=== PATIENT | male | born 1975 | race African-American/Black ===

== ENCOUNTER 2019-01-28 14:35 | Inpatient (IN) | payer OTHER ==
[2019-01-28 15:15] VITALS: BMI 31.0
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
--- NOTE | 2019-01-28 17:37 | PN ---
"Teaching Attending Note Name of Resident: Ave Rodrigues ATTENDING PHYSICIAN STATEMENT I saw and evaluated the patient. I reviewed the resident's note and discussed the case with the resident. I agree with the resident's findings and plan as documented. SUBJECTIVE: 43 y.o. male pt here requesting detox from etoh use , reports 1 pint/day , relapsed after d/c from rehab October 2018 , reports he starts drinking alcohol when returning home from work in the afternoon , has been drinking alcohol continuously since yesterday , 1/2 gallon vodka, current VANNESSA 0.266 . PMHx of HTN, Asthma, Sarcoidosis (diagnosed 2001), gout, Pneumothorax-about 2013 , chest tube 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 joellen hands deformities ( hyper-extension PIP ) This report was requested by: Amanda Marcelo | Reference #: [id number] Others' Prescriptions Patient Name: Annie Guzman Date: 1975 Address: [address] [place] [address] [address] [place] [address] Sex: Male Rx Written Rx Dispensed Drug Quantity Days Supply Prescriber Name 04/04/2018 04/04/2018 hydrocodone-homatropine syrup 60ml 6 Melania Sam MD 03/23/2018 03/23/2018 codeine-guaifen 10-100 mg/5 ml 100ml 5 Steven Chaudhari MD Vital Signs - 24 hr 01/28/19 01/28/19 14:55 16:26 Temperature 97.7 F 97.7 F Pulse Rate 102 H 102 H Respiratory 18 18 Rate Blood Pressure 149/77 149/77 ASSESSMENT AND PLAN: Alcohol intoxication - Librium detox"
[2019-01-28] MEDS ORDERED: MAGNESIUM HYDROX 2400MG/30ML ORAL SUSPENSION 30 ML CUP PO PRN (17:45)
[2019-01-28] MEDS ORDERED: BISMUTH SUBSALICYLATE 524 MG/30 ML UD PO PRN (17:45)
[2019-01-28] MEDS ORDERED: MAG HYDROX/AL HYDROX/SIMETH 30 ML UNIT-DOSE CUP PO PRN (17:45)
[2019-01-28] MEDS ORDERED: ACETAMINOPHEN 325 MG TABLET (FP) PO PRN ×2 (17:45)
[2019-01-28] MEDS ORDERED: chlordiazePOXIDE HCL 25 MG CAPSULE PO PRN (17:45)
[2019-01-28] MEDS ORDERED: hydrOXYzine PAMOATE 25 MG CAPSULE (FP) PO PRN (17:45)
[2019-01-28] MEDS ORDERED: MAGNESIUM CITRATE 300 ML BOTTLE PO PRN (17:45)
[2019-01-28] MEDS ORDERED: METHOCARBAMOL 500 MG TABLET PO PRN (17:45)
[2019-01-28] MEDS: amLODIPine BESYLATE 10 MG TABLET (FP) PO SCH (19:20)
[2019-01-28] MEDS: predniSONE 10 MG TABLET (UD) PO SCH (19:20)
[2019-01-28] MEDS: MONTELUKAST NA 10 MG TABLET PO SCH (22:12)
[2019-01-28] MEDS: THIAMINE HCL 100 MG TABLET (FP) PO SCH (22:12)
[2019-01-28] MEDS: chlordiazePOXIDE HCL 25 MG CAPSULE PO SCH (22:12)
[2019-01-28] MEDS: MELATONIN 5 MG TABLETS PO PRN (22:14)
[2019-01-29] MEDS: chlordiazePOXIDE HCL 25 MG CAPSULE PO SCH ×4 (06:07→22:52)
[2019-01-29 09:44] LABS: HEMATOCRIT 46.8 % (35.4-49); HEMOGLOBIN 16.2 GM/dL (11.7-16.9); MCH 29.4 pg (25.7-33.7); MCHC 34.5 g/dl (32.0-35.9); MEAN CELL VOLUME 85.2 fl (80-96); MEAN PLT VOLUME 8.4 fl (7.5-11.1); PLATELET COUNT 275 K/MM3 (134-434); RDW 18.6 % (11.9-15.9); WHITE BLOOD COUNT 4.4 K/mm3 (4.0-10.0)
[2019-01-29] MEDS: predniSONE 10 MG TABLET (UD) PO SCH (10:15)
[2019-01-29] MEDS: amLODIPine BESYLATE 10 MG TABLET (FP) PO SCH (10:15)
[2019-01-29] MEDS: FUROSEMIDE 20 MG TABLET (FP) PO SCH (10:15)
[2019-01-29] MEDS: ALLOPURINOL 300 MG TABLET (FP) PO SCH (10:15)
[2019-01-29] MEDS: PRENATAL VITAMINS W/ FOLIC ACID TABLET (FP) PO SCH (10:15)
[2019-01-29 10:33] LABS: ALBUMIN 3.9 g/dl (3.4-5.0); BLOOD UREA NITROGEN 15.8 mg/dL (7-18); CALCIUM 8.8 mg/dL (8.5-10.1); CREATININE 0.9 mg/dL (0.55-1.3); POTASSIUM 4.3 mmol/L (3.5-5.1); TOT PROT 7.3 g/dl (6.4-8.2)
--- NOTE | 2019-01-29 11:48 | PN ---
S CIWA - CIWA Score Nausea/Vomitin-No Nausea/No Vomiting Muscle Tremors: 3 Anxiety: 3 Agitation: 3 Paroxysmal Sweats: 1-Minimal Palms Moist Orientation: 0-Oriented Tacttile Disturbances: 0-None Auditory Disturbances: 0-None Visual Disturbances: 0-None Headache: 0-None Present CIWA-Ar Total Score: 10 [facility] Progress Note (SOAP) Subjective: shakes sweats interrupted sleep body aches Objective: 01/29/19 11:46 Vital Signs Temperature 99.5 F 01/29/19 09:15 Pulse Rate 108 H 01/29/19 09:15 Respiratory Rate 18 01/29/19 09:15 Blood Pressure 156/96 01/29/19 09:15 O2 Sat by Pulse Oximetry (%) Laboratory Tests 01/29/19 01/29/19 01/29/19 07:10 07:10 07:10 WBC 4.4 RBC 5.50 Hgb 16.2 Hct 46.8 D MCV 85.2 MCH 29.4 MCHC 34.5 RDW 18.6 H Plt Count 275 D MPV 8.4 Sodium 132 L Potassium 4.3 Chloride 95 L Carbon Dioxide 25 Anion Gap 12 BUN 15.8 Creatinine 0.9 Est GFR (CKD-EPI)AfAm 122.52 Est GFR (CKD-EPI)NonAf 105.71 Random Glucose 137 H Calcium 8.8 Total Bilirubin 1.0 AST 159 H ALT 147 H Alkaline Phosphatase 119 H Total Protein 7.3 Albumin 3.9 RPR Titer Nonreactive labs noted aaox3 ambulating no acute distress Assessment: 01/29/19 11:48 withdrawals Plan: continue detox increase fluids
[2019-01-29] MEDS: BUDESONIDE/FORMETEROL FUMARATE 80/4.5 mcg INHALER IH PRN (13:18)
[2019-01-29] MEDS: IBUPROFEN 400 MG TABLET (FP) PO PRN (18:44)
[2019-01-29] MEDS: MONTELUKAST NA 10 MG TABLET PO SCH (22:52)
[2019-01-29] MEDS: THIAMINE HCL 100 MG TABLET (FP) PO SCH (22:52)
[2019-01-30] MEDS: chlordiazePOXIDE HCL 25 MG CAPSULE PO SCH ×4 (05:52→22:49)
[2019-01-30] MEDS: BUDESONIDE/FORMETEROL FUMARATE 80/4.5 mcg INHALER IH PRN ×2 (05:52→22:51)
[2019-01-30] MEDS: MENTHOL/PHENOL 1 EACH UD MM PRN (05:53)
[2019-01-30 10:03] LABS: SGOT/AST 123 U/L (15-37); SGPT/ALT 111 U/L (13-61)
--- NOTE | 2019-01-30 10:23 | PN ---
S CIWA - CIWA Score Nausea/Vomitin-No Nausea/No Vomiting Muscle Tremors: 2 Anxiety: 2 Agitation: 2 Paroxysmal Sweats: 1-Minimal Palms Moist Orientation: 0-Oriented Tacttile Disturbances: 0-None Auditory Disturbances: 0-None Visual Disturbances: 0-None Headache: 0-None Present CIWA-Ar Total Score: 7 [facility] Progress Note (SOAP) Subjective: sweats mild shakes interrupted sleep Objective: 01/30/19 10:22 Vital Signs Temperature 98.1 F 01/30/19 09:49 Pulse Rate 107 H 01/30/19 09:49 Respiratory Rate 18 01/30/19 09:49 Blood Pressure 142/81 01/30/19 09:49 O2 Sat by Pulse Oximetry (%) Laboratory Tests 01/29/19 01/29/19 01/29/19 07:10 07:10 07:10 WBC 4.4 RBC 5.50 Hgb 16.2 Hct 46.8 D MCV 85.2 MCH 29.4 MCHC 34.5 RDW 18.6 H Plt Count 275 D MPV 8.4 Sodium 132 L Potassium 4.3 Chloride 95 L Carbon Dioxide 25 Anion Gap 12 BUN 15.8 Creatinine 0.9 Est GFR (CKD-EPI)AfAm 122.52 Est GFR (CKD-EPI)NonAf 105.71 Random Glucose 137 H Calcium 8.8 Total Bilirubin 1.0 AST 159 H ALT 147 H Alkaline Phosphatase 119 H Total Protein 7.3 Albumin 3.9 RPR Titer Nonreactive 01/30/19 06:00 WBC RBC Hgb Hct MCV MCH MCHC RDW Plt Count MPV Sodium Potassium Chloride Carbon Dioxide Anion Gap BUN Creatinine Est GFR (CKD-EPI)AfAm Est GFR (CKD-EPI)NonAf Random Glucose Calcium Total Bilirubin AST 123 H ALT 111 H Alkaline Phosphatase Total Protein Albumin RPR Titer repeated labs repeated ast and alt improving aaox3 ambulating no acute distress Assessment: 01/30/19 10:23 withdrawal sx Plan: continue detox increase fluids
[2019-01-30] MEDS: predniSONE 10 MG TABLET (UD) PO SCH (10:34)
[2019-01-30] MEDS: FUROSEMIDE 20 MG TABLET (FP) PO SCH (10:34)
[2019-01-30] MEDS: PRENATAL VITAMINS W/ FOLIC ACID TABLET (FP) PO SCH (10:34)
[2019-01-30] MEDS: amLODIPine BESYLATE 10 MG TABLET (FP) PO SCH (10:35)
[2019-01-30] MEDS: ALLOPURINOL 300 MG TABLET (FP) PO SCH (10:36)
[2019-01-30] MEDS: IBUPROFEN 400 MG TABLET (FP) PO PRN ×2 (10:39→22:55)
[2019-01-30] MEDS: ALBUTEROL SO4 8 GM HFA INHALER IH PRN (14:46)
[2019-01-30] MEDS: MONTELUKAST NA 10 MG TABLET PO SCH (22:49)
[2019-01-30] MEDS: THIAMINE HCL 100 MG TABLET (FP) PO SCH (22:49)
[2019-01-30] MEDS: MELATONIN 5 MG TABLETS PO PRN (22:52)
[2019-01-31] MEDS ORDERED: chlordiazePOXIDE HCL 10 MG CAPSULE PO PRN
[2019-01-31] MEDS: chlordiazePOXIDE HCL 10 MG CAPSULE PO SCH ×3 (06:11→17:17)
[2019-01-31] MEDS: ALBUTEROL SO4 8 GM HFA INHALER IH PRN (06:12)
[2019-01-31] MEDS: IBUPROFEN 400 MG TABLET (FP) PO PRN (06:14)
[2019-01-31] MEDS: PRENATAL VITAMINS W/ FOLIC ACID TABLET (FP) PO SCH (10:23)
[2019-01-31] MEDS: ALLOPURINOL 300 MG TABLET (FP) PO SCH (10:24)
[2019-01-31] MEDS: amLODIPine BESYLATE 10 MG TABLET (FP) PO SCH (10:24)
[2019-01-31] MEDS: FUROSEMIDE 20 MG TABLET (FP) PO SCH (10:24)
[2019-01-31] MEDS: predniSONE 10 MG TABLET (UD) PO SCH (10:24)
[2019-01-31] MEDS: BUDESONIDE/FORMETEROL FUMARATE 80/4.5 mcg INHALER IH PRN ×2 (10:26→17:20)
--- NOTE | 2019-01-31 11:53 | PN ---
S CIWA - CIWA Score Nausea/Vomitin-No Nausea/No Vomiting Muscle Tremors: 3 Anxiety: 1-Mildly Anxious Agitation: 0-Normal Activity Paroxysmal Sweats: 1-Minimal Palms Moist Orientation: 0-Oriented Tacttile Disturbances: 0-None Auditory Disturbances: 0-None Visual Disturbances: 0-None Headache: 0-None Present CIWA-Ar Total Score: 5 [facility] Progress Note (SOAP) Subjective: the librium too strong mild shakes tired/groggy Objective: 01/31/19 11:48 Vital Signs Temperature 97.1 F L 01/31/19 10:00 Pulse Rate 95 H 01/31/19 10:00 Respiratory Rate 18 01/31/19 10:00 Blood Pressure 135/88 01/31/19 10:00 O2 Sat by Pulse Oximetry (%) Laboratory Tests 01/29/19 01/29/19 01/29/19 07:10 07:10 07:10 WBC 4.4 RBC 5.50 Hgb 16.2 Hct 46.8 D MCV 85.2 MCH 29.4 MCHC 34.5 RDW 18.6 H Plt Count 275 D MPV 8.4 Sodium 132 L Potassium 4.3 Chloride 95 L Carbon Dioxide 25 Anion Gap 12 BUN 15.8 Creatinine 0.9 Est GFR (CKD-EPI)AfAm 122.52 Est GFR (CKD-EPI)NonAf 105.71 Random Glucose 137 H Calcium 8.8 Total Bilirubin 1.0 AST 159 H ALT 147 H Alkaline Phosphatase 119 H Total Protein 7.3 Albumin 3.9 RPR Titer Nonreactive 01/30/19 06:00 WBC RBC Hgb Hct MCV MCH MCHC RDW Plt Count MPV Sodium Potassium Chloride Carbon Dioxide Anion Gap BUN Creatinine Est GFR (CKD-EPI)AfAm Est GFR (CKD-EPI)NonAf Random Glucose Calcium Total Bilirubin AST 123 H ALT 111 H Alkaline Phosphatase Total Protein Albumin RPR Titer labs noted liver enzymes improving aaox3 ambulating no acute distress Assessment: 01/31/19 11:49 mild withdrawals Plan: continue detox with modified dose of librium increase fluids
[2019-01-31] MEDS: THIAMINE HCL 100 MG TABLET (FP) PO SCH (22:16)
[2019-01-31] MEDS: MELATONIN 5 MG TABLETS PO PRN (22:16)
[2019-01-31] MEDS: MONTELUKAST NA 10 MG TABLET PO SCH (22:19)
[2019-01-31] MEDS: MENTHOL/PHENOL 1 EACH UD MM PRN (22:21)
[2019-02-01] MEDS ORDERED: chlordiazePOXIDE HCL 10 MG CAPSULE PO SCH ×2 (05:00→17:00)
[2019-02-01] MEDS: ALLOPURINOL 300 MG TABLET (FP) PO SCH (09:36)
[2019-02-01] MEDS: FUROSEMIDE 20 MG TABLET (FP) PO SCH (09:36)
[2019-02-01] MEDS: amLODIPine BESYLATE 10 MG TABLET (FP) PO SCH (09:36)
[2019-02-01] MEDS: BUDESONIDE/FORMETEROL FUMARATE 80/4.5 mcg INHALER IH PRN ×2 (09:36→22:12)
[2019-02-01] MEDS: PRENATAL VITAMINS W/ FOLIC ACID TABLET (FP) PO SCH (09:36)
[2019-02-01] MEDS: predniSONE 10 MG TABLET (UD) PO SCH (09:36)
--- NOTE | 2019-02-01 16:25 | PN ---
S CIWA - CIWA Score Nausea/Vomitin-No Nausea/No Vomiting Muscle Tremors: None Anxiety: 3 Agitation: 1-Slight > Activity Paroxysmal Sweats: No Perspiration Orientation: 0-Oriented Tacttile Disturbances: 1-Very Mild Itch/Numbness Auditory Disturbances: 0-None Visual Disturbances: 0-None Headache: 0-None Present CIWA-Ar Total Score: 5 [facility] Progress Note (SOAP) Subjective: Anxious (mild). Objective: PATIENT A & O X 3, OBSERVED AMBULATING ON DETOX UNIT UNASSISTED. IN NO ACUTE DISTRESS. 02/01/19 16:23 Vital Signs Temperature 99.1 F 02/01/19 14:48 Pulse Rate 100 H 02/01/19 14:48 Respiratory Rate 18 02/01/19 14:48 Blood Pressure 121/83 02/01/19 14:48 O2 Sat by Pulse Oximetry (%) Laboratory Tests 01/29/19 01/29/19 01/29/19 07:10 07:10 07:10 WBC 4.4 RBC 5.50 Hgb 16.2 Hct 46.8 D MCV 85.2 MCH 29.4 MCHC 34.5 RDW 18.6 H Plt Count 275 D MPV 8.4 Sodium 132 L Potassium 4.3 Chloride 95 L Carbon Dioxide 25 Anion Gap 12 BUN 15.8 Creatinine 0.9 Est GFR (CKD-EPI)AfAm 122.52 Est GFR (CKD-EPI)NonAf 105.71 Random Glucose 137 H Calcium 8.8 Total Bilirubin 1.0 AST 159 H ALT 147 H Alkaline Phosphatase 119 H Total Protein 7.3 Albumin 3.9 RPR Titer Nonreactive 01/30/19 06:00 WBC RBC Hgb Hct MCV MCH MCHC RDW Plt Count MPV Sodium Potassium Chloride Carbon Dioxide Anion Gap BUN Creatinine Est GFR (CKD-EPI)AfAm Est GFR (CKD-EPI)NonAf Random Glucose Calcium Total Bilirubin AST 123 H ALT 111 H Alkaline Phosphatase Total Protein Albumin RPR Titer LABS NOTED. Assessment: 02/01/19 16:24 WITHDRAWAL SYMPTOMS. ELEVATED LIVER ENZYMES. 02/01/19 16:24 Plan: CONTINUE DETOX. INCREASE DAILY ORAL WATER INTAKE. PATIENT SCHEDULED FOR D/C FROM DETOX UNIT TOMORROW.
[2019-02-01] MEDS: THIAMINE HCL 100 MG TABLET (FP) PO SCH (22:10)
[2019-02-01] MEDS: MONTELUKAST NA 10 MG TABLET PO SCH (22:10)
[2019-02-01] MEDS: IBUPROFEN 400 MG TABLET (FP) PO PRN (22:11)
[2019-02-02] MEDS ORDERED: chlordiazePOXIDE HCL 10 MG CAPSULE PO ONE (05:00)
[2019-02-02] MEDS: FUROSEMIDE 20 MG TABLET (FP) PO SCH (10:26)
[2019-02-02] MEDS: predniSONE 10 MG TABLET (UD) PO SCH (10:26)
[2019-02-02] MEDS: ALLOPURINOL 300 MG TABLET (FP) PO SCH (10:27)
[2019-02-02] MEDS: amLODIPine BESYLATE 10 MG TABLET (FP) PO SCH (10:27)
[2019-02-02] MEDS: PRENATAL VITAMINS W/ FOLIC ACID TABLET (FP) PO SCH (10:28)
--- NOTE | 2019-02-02 14:17 | DS ---
[facility] Detox Discharge Summary Admission Date: 01/28/19 Discharge Date: 02/02/19 - History Present History: Alcohol Dependence Additional Comments: Pt completed detox successfully and is in stable condition. Awaiting admission to [facility] inpatient Rehab here at [facility]. Pertinent Past History: Asthma HTN Sarcoidosis Alcohol dependence Alcohol related seizure disorder - Physical Exam Results Vital Signs: Vital Signs Temperature 97.9 F 02/02/19 10:54 Pulse Rate 88 02/02/19 10:54 Respiratory Rate 18 02/02/19 10:54 Blood Pressure 128/67 02/02/19 10:54 O2 Sat by Pulse Oximetry (%) Pertinent Admission Physical Exam Findings: Withdrawal sxs Laboratory Tests 01/29/19 01/29/19 01/29/19 07:10 07:10 07:10 WBC 4.4 RBC 5.50 Hgb 16.2 Hct 46.8 D MCV 85.2 MCH 29.4 MCHC 34.5 RDW 18.6 H Plt Count 275 D MPV 8.4 Sodium 132 L Potassium 4.3 Chloride 95 L Carbon Dioxide 25 Anion Gap 12 BUN 15.8 Creatinine 0.9 Est GFR (CKD-EPI)AfAm 122.52 Est GFR (CKD-EPI)NonAf 105.71 Random Glucose 137 H Calcium 8.8 Total Bilirubin 1.0 AST 159 H ALT 147 H Alkaline Phosphatase 119 H Total Protein 7.3 Albumin 3.9 RPR Titer Nonreactive 01/30/19 06:00 WBC RBC Hgb Hct MCV MCH MCHC RDW Plt Count MPV Sodium Potassium Chloride Carbon Dioxide Anion Gap BUN Creatinine Est GFR (CKD-EPI)AfAm Est GFR (CKD-EPI)NonAf Random Glucose Calcium Total Bilirubin AST 123 H ALT 111 H Alkaline Phosphatase Total Protein Albumin RPR Titer Labs reviewed: Na 132, AST/ALT elevated (trending downward), alk phos mildly elevated, glucose 137 (need to repeat CMP and send A1c in AM) - Treatment Hospital Course: Detox Protocol Followed, Detoxed Safely, Responded well, Discharged Condition Good, Rehab Referral Accepted - Medication Discharge Medications: Ambulatory Orders Albuterol Sulfate Inhaler - [Ventolin Hfa *Inhaler*] 2 5ml IH Q4H PRN 01/10/12 Amlodipine Besylate [Norvasc] 10 mg PO DAILY 01/10/12 Allopurinol 300 mg PO DAILY 01/28/19 Budesonide/Formeterol Fumarate [SYMBICORT 80/4.5mcg -] 1 inh PO BID 01/28/19 Diltiazem HCl [Diltiazem 24Hr ER] 120 mg PO DAILY 01/28/19 Furosemide [Lasix -] 20 mg PO DAILY 01/28/19 Montelukast Na [Singulair -] 10 mg PO HS 01/28/19 Prednisone 10 mg PO DAILY 01/28/19 - Diagnosis (1) Hypocalcemia Current Visit: Yes Status: Acute (2) Hyperglycemia Current Visit: Yes Status: Acute (3) Elevated LFTs Current Visit: Yes Status: Acute (4) Alcohol dependence with uncomplicated withdrawal Current Visit: Yes Status: Chronic (5) Asthma Current Visit: Yes Status: Chronic (6) Essential hypertension Current Visit: Yes Status: Chronic (7) Sarcoidosis Current Visit: Yes Status: Chronic - AMA Did Patient Leave Against Medical Advice: No (Accepted admission to [facility])
--- NOTE | 2019-02-02 15:25 | HP ---
[facility] Rehab Assess/Revision - Admission History Admitted to Rehab from: [facility] Date of Admission to Rehab: 02/02/19 - Vital signs Vital Signs: Vital Signs Period Temp Pulse Resp BP Sys/Rosario Pulse Ox Last 24 Hr 95.4 F-98.2 F 72-91 18-20 117-137/67-80 - Findings Detox History & Physical reviewed: Yes Concur with findings: Yes Inpatient Rehab Admission - Rehab Decision to Admit Inpatient rehab admission?: Yes - Initial Determination Are CD services needed?: No Free of communicable disease: Yes Not in need of hospitalization: Yes - Rehab Admission Criteria Previous failed treatment: Yes Poor recovery environment: Yes Comorbidities: Yes Lacks judgement: Yes Patient is meeting Inpatient Rehab admission criteria:: Yes
[2019-02-02] MEDS: MELATONIN 5 MG TABLETS PO PRN (21:29)
[2019-02-02] MEDS: MONTELUKAST NA 10 MG TABLET PO SCH (21:29)
[2019-02-02] MEDS: THIAMINE HCL 100 MG TABLET (FP) PO SCH (21:29)
[2019-02-02] MEDS: IBUPROFEN 400 MG TABLET (FP) PO PRN (21:44)
[2019-02-03] MEDS ORDERED: SUVOREXANT 10 MG TABLET PO PRN (08:54)
[2019-02-03] MEDS ORDERED: PT OWN MED DRAWER 7, Y5N ONE ×2 (09:13→22:04)
[2019-02-03] MEDS: BUDESONIDE/FORMETEROL FUMARATE 80/4.5 mcg INHALER IH PRN ×2 (09:55→22:05)
[2019-02-03] MEDS: ALLOPURINOL 300 MG TABLET (FP) PO SCH (09:56)
[2019-02-03] MEDS: amLODIPine BESYLATE 10 MG TABLET (FP) PO SCH (09:56)
[2019-02-03] MEDS: FUROSEMIDE 20 MG TABLET (FP) PO SCH (09:56)
[2019-02-03] MEDS: predniSONE 10 MG TABLET (UD) PO SCH (09:56)
[2019-02-03] MEDS: PRENATAL VITAMINS W/ FOLIC ACID TABLET (FP) PO SCH (09:56)
[2019-02-03] MEDS: COLLOIDAL OATMEAL 1 BAR EACH TP PRN (10:16)
[2019-02-03 12:22] LABS: ALBUMIN 3.8 g/dl (3.4-5.0); BILIRUBIN,TOTAL 0.7 mg/dL (0.2-1); BLOOD UREA NITROGEN 12.3 mg/dL (7-18); CALCIUM 9.2 mg/dL (8.5-10.1); CREATININE 0.9 mg/dL (0.55-1.3); POTASSIUM 3.8 mmol/L (3.5-5.1); TOT PROT 7.2 g/dl (6.4-8.2)
--- NOTE | 2019-02-03 14:22 | PN ---
[facility] Progress Note Note: Vital Signs Temperature 98 F 02/03/19 06:52 Pulse Rate 95 H 02/03/19 09:30 Respiratory Rate 18 02/03/19 09:30 Blood Pressure 125/74 02/03/19 09:30 O2 Sat by Pulse Oximetry (%) Laboratory Tests 01/29/19 01/29/19 01/29/19 07:10 07:10 07:10 WBC 4.4 RBC 5.50 Hgb 16.2 Hct 46.8 D MCV 85.2 MCH 29.4 MCHC 34.5 RDW 18.6 H Plt Count 275 D MPV 8.4 Sodium 132 L Potassium 4.3 Chloride 95 L Carbon Dioxide 25 Anion Gap 12 BUN 15.8 Creatinine 0.9 Est GFR (CKD-EPI)AfAm 122.52 Est GFR (CKD-EPI)NonAf 105.71 Random Glucose 137 H Hemoglobin A1c % Calcium 8.8 Total Bilirubin 1.0 AST 159 H ALT 147 H Alkaline Phosphatase 119 H Total Protein 7.3 Albumin 3.9 RPR Titer Nonreactive 01/30/19 02/03/19 02/03/19 06:00 08:00 08:00 WBC RBC Hgb Hct MCV MCH MCHC RDW Plt Count MPV Sodium 135 L Potassium 3.8 Chloride 99 Carbon Dioxide 29 Anion Gap 8 BUN 12.3 Creatinine 0.9 Est GFR (CKD-EPI)AfAm 122.52 Est GFR (CKD-EPI)NonAf 105.71 Random Glucose 201 H Hemoglobin A1c % 6.4 H Calcium 9.2 Total Bilirubin 0.7 AST 123 H 71 H ALT 111 H 135 H Alkaline Phosphatase 124 H Total Protein 7.2 Albumin 3.8 RPR Titer LABS REVIEWED. PATIENT HAS AIC 6.4. ORAL FLUIDS, NCS DIET ENCOURAGED. PATIENT ALSO ON PREDNISONE FOR SARCOIDOSIS. PATIENT STATES ALTHOUGH PRESCRIPTION WRITTEN FOR 10MG DAILY, PATIENT'S HOUSE WIRER WOULD TITRATE MEDICATION. PATIENT ENCOURAGED TO CONTACT SPECIALIST AND HAVE HIM FAX RECOMMENDATIONS OF TITRATION TO [facility].
[2019-02-03] MEDS: THIAMINE HCL 100 MG TABLET (FP) PO SCH (22:01)
[2019-02-03] MEDS: MONTELUKAST NA 10 MG TABLET PO SCH (22:01)
[2019-02-04] MEDS: BUDESONIDE/FORMETEROL FUMARATE 80/4.5 mcg INHALER IH PRN (09:55)
[2019-02-04] MEDS: FUROSEMIDE 20 MG TABLET (FP) PO SCH (09:55)
[2019-02-04] MEDS: amLODIPine BESYLATE 10 MG TABLET (FP) PO SCH (09:55)
[2019-02-04] MEDS: predniSONE 10 MG TABLET (UD) PO SCH (09:55)
[2019-02-04] MEDS: PRENATAL VITAMINS W/ FOLIC ACID TABLET (FP) PO SCH (09:55)
[2019-02-04] MEDS: IBUPROFEN 400 MG TABLET (FP) PO PRN ×2 (09:56→21:25)
[2019-02-04] MEDS ORDERED: SELENIUM SULFIDE 2.25% 180 ML SHAMPOO TP SCH (10:00)
[2019-02-04] MEDS: ALLOPURINOL 300 MG TABLET (FP) PO SCH (10:10)
[2019-02-04] MEDS ORDERED: PT OWN MED DRAWER 7, Y5N ONE ×2 (10:11→21:52)
[2019-02-04] MEDS: SELENIUM SULFIDE 2.5% LOTION 4 OZ. TP SCH (10:11)
--- NOTE | 2019-02-04 13:21 | PN ---
[facility] Progress Note (SOAP) Subjective: A1c is 6.4. Patient is on 10 mg prednisone daily for sarcoidosis Liver enzymes elevated. Patient has a medical hx of both. Objective: 02/04/19 13:19 Laboratory 01/29/19 01/29/19 01/29/19 07:10 07:10 07:10 WBC 4.4 K/mm3 K/mm3 (4.0-10.0) RBC 5.50 M/mm3 M/mm3 (4.00-5.60) Hgb 16.2 GM/dL GM/dL (11.7-16.9) Hct 46.8 % D % (35.4-49) MCV 85.2 fl fl (80-96) MCH 29.4 pg pg (25.7-33.7) MCHC 34.5 g/dl g/dl (32.0-35.9) RDW 18.6 % H % (11.9-15.9) Plt Count 275 K/MM3 D K/MM3 (134-434) MPV 8.4 fl fl (7.5-11.1) Sodium 132 mmol/L L mmol/L (136-145) Potassium 4.3 mmol/L mmol/L (3.5-5.1) Chloride 95 mmol/L L mmol/L (98-107) Carbon Dioxide 25 mmol/L mmol/L (21-32) Anion Gap 12 MMOL/L MMOL/L (8-16) BUN 15.8 mg/dL mg/dL (7-18) Creatinine 0.9 mg/dL mg/dL (0.55-1.3) Est GFR (CKD-EPI)AfAm 122.52 Est GFR (CKD-EPI)NonAf 105.71 Random Glucose 137 mg/dL H mg/dL (74-106) Hemoglobin A1c % Calcium 8.8 mg/dL mg/dL (8.5-10.1) Total Bilirubin 1.0 mg/dL mg/dL (0.2-1) AST 159 U/L H U/L (15-37) ALT 147 U/L H U/L (13-61) Alkaline Phosphatase 119 U/L H U/L (45-117) Total Protein 7.3 g/dl g/dl (6.4-8.2) Albumin 3.9 g/dl g/dl (3.4-5.0) RPR Titer Nonreactive (NONREACTIVE) 01/30/19 02/03/19 02/03/19 06:00 08:00 08:00 WBC RBC Hgb Hct MCV MCH MCHC RDW Plt Count MPV Sodium 135 mmol/L L mmol/L (136-145) Potassium 3.8 mmol/L mmol/L (3.5-5.1) Chloride 99 mmol/L mmol/L (98-107) Carbon Dioxide 29 mmol/L mmol/L (21-32) Anion Gap 8 MMOL/L MMOL/L (8-16) BUN 12.3 mg/dL mg/dL (7-18) Creatinine 0.9 mg/dL mg/dL (0.55-1.3) Est GFR (CKD-EPI)AfAm 122.52 Est GFR (CKD-EPI)NonAf 105.71 Random Glucose 201 mg/dL H mg/dL (74-106) Hemoglobin A1c % 6.4 % H % (4.2-6.3) Calcium 9.2 mg/dL mg/dL (8.5-10.1) Total Bilirubin 0.7 mg/dL mg/dL (0.2-1) AST 123 U/L H U/L 71 U/L H U/L (15-37) (15-37) ALT 111 U/L H U/L 135 U/L H U/L (13-61) (13-61) Alkaline Phosphatase 124 U/L H U/L (45-117) Total Protein 7.2 g/dl g/dl (6.4-8.2) Albumin 3.8 g/dl g/dl (3.4-5.0) RPR Titer Assessment: hyperglycemia Elevated LFTs 02/04/19 13:22 02/04/19 13:25 Plan: encourage NCS diet; BGM x 3 days.continue to monitor LFTs, decreased from 01/29 to 02/03.
[2019-02-04] MEDS ORDERED: COLCHICINE 0.6 MG CAP PO PRN ×2 (14:05→14:23)
--- NOTE | 2019-02-04 15:32 | PN ---
S Progress Note (SOAP) Subjective: patient on prednisone, 10 mg daily. Patient reports that he is only on prednisone when he has a flair-up of scaroidosis and then his PCP tapers it off. He also reports that his norvasc was discontinued when he started cardizem. He also says he takes colchicine when he has a flare-up of gout and that it is given along with his allopurinol and his cardizem. He now reports a slight tingling in his left great toe, which he says is a precursor to a gout flare-up. His A1c is 6.4, possibly related to ETOH use and prednisone. His PCP, Dr. Morales was called and verified everything that the patient reported. Objective: Vital Signs (72 hours) 02/01/19 02/01/19 02/01/19 17:26 18:46 21:21 Temperature 98.2 F 95.4 F L 98.2 F Pulse Rate 89 72 91 H Respiratory 18 18 18 Rate Blood Pressure 117/67 137/80 130/72 02/02/19 02/02/19 02/02/19 00:30 03:30 10:54 Temperature 97.9 F Pulse Rate 88 Respiratory 20 18 18 Rate Blood Pressure 128/67 02/03/19 02/03/19 02/03/19 00:30 03:30 06:52 Temperature 98 F Pulse Rate 78 Respiratory 20 20 18 Rate Blood Pressure 132/92 02/03/19 02/04/19 02/04/19 09:30 07:07 11:54 Temperature 97.8 F Pulse Rate 95 H 66 96 H Respiratory 18 18 18 Rate Blood Pressure 125/74 118/74 128/75 02/04/19 15:29 P/E General: no apparent distress, able to make needs known, follow instructions Skin: color consistent throughout trunk and extremities Lungs: clear Heart: s1 s2 extremities: bilateral feet warm, good turgor, no swelling of toes, tenderness on palpation Neuro: Cn 2-12 intact MSK: full weight bearing, full ROM. steady gait. Assessment: Prednisone taper needed r/o gout flare-up Medication review 02/04/19 15:32 Plan: Prednisone taper ordered. Uric acid level ordered colchicine ordered and PCP instruction included in order for pharmacy Norvasc discontinued patient advised to follow up with PCP about elevated A1c. Patient agreed.
[2019-02-04] MEDS: MELATONIN 5 MG TABLETS PO PRN (21:24)
[2019-02-04] MEDS: THIAMINE HCL 100 MG TABLET (FP) PO SCH (21:24)
[2019-02-04] MEDS: MONTELUKAST NA 10 MG TABLET PO SCH (21:24)
[2019-02-05] MEDS: IBUPROFEN 400 MG TABLET (FP) PO PRN ×2 (06:09→22:26)
[2019-02-05] MEDS ORDERED: PT OWN MED DRAWER 7, Y5N ONE ×2 (08:34→09:57)
[2019-02-05] MEDS: FUROSEMIDE 20 MG TABLET (FP) PO SCH (09:53)
[2019-02-05] MEDS: predniSONE 5 MG TABLET (UD) PO SCH (09:53)
[2019-02-05] MEDS: PRENATAL VITAMINS W/ FOLIC ACID TABLET (FP) PO SCH (09:54)
[2019-02-05] MEDS: SELENIUM SULFIDE 2.5% LOTION 4 OZ. TP SCH (09:55)
[2019-02-05] MEDS: ALLOPURINOL 300 MG TABLET (FP) PO SCH (09:55)
[2019-02-05] MEDS: THIAMINE HCL 100 MG TABLET (FP) PO SCH (21:49)
[2019-02-05] MEDS: MONTELUKAST NA 10 MG TABLET PO SCH (21:49)
[2019-02-05] MEDS: MELATONIN 5 MG TABLETS PO PRN (21:50)
[2019-02-05] MEDS: BUDESONIDE/FORMETEROL FUMARATE 80/4.5 mcg INHALER IH PRN (21:50)
[2019-02-06] MEDS ORDERED: PT OWN MED DRAWER 7, Y5N ONE ×2 (06:37→21:30)
[2019-02-06] MEDS: IBUPROFEN 400 MG TABLET (FP) PO PRN ×2 (06:38→21:31)
[2019-02-06] MEDS: FUROSEMIDE 20 MG TABLET (FP) PO SCH (09:52)
[2019-02-06] MEDS: PRENATAL VITAMINS W/ FOLIC ACID TABLET (FP) PO SCH (09:52)
[2019-02-06] MEDS: predniSONE 5 MG TABLET (UD) PO SCH (09:52)
[2019-02-06] MEDS: ALLOPURINOL 300 MG TABLET (FP) PO SCH (09:52)
[2019-02-06] MEDS: BUDESONIDE/FORMETEROL FUMARATE 80/4.5 mcg INHALER IH PRN (09:55)
[2019-02-06] MEDS: COLLOIDAL OATMEAL 1 BAR EACH TP PRN (16:33)
[2019-02-06] MEDS: MONTELUKAST NA 10 MG TABLET PO SCH (21:31)
[2019-02-06] MEDS: MELATONIN 5 MG TABLETS PO PRN (21:31)
[2019-02-06] MEDS: THIAMINE HCL 100 MG TABLET (FP) PO SCH (21:31)
[2019-02-07] MEDS: SELENIUM SULFIDE 2.5% LOTION 4 OZ. TP SCH ×2 (06:27→10:11)
--- NOTE | 2019-02-07 10:03 | PN ---
[facility] Progress Note Note: Patient c/o insomnia, will Belsomra 10mg po prn.
[2019-02-07] MEDS: PRENATAL VITAMINS W/ FOLIC ACID TABLET (FP) PO SCH (10:08)
[2019-02-07] MEDS: FUROSEMIDE 20 MG TABLET (FP) PO SCH (10:08)
[2019-02-07] MEDS: predniSONE 5 MG TABLET (UD) PO SCH (10:10)
[2019-02-07] MEDS: ALLOPURINOL 300 MG TABLET (FP) PO SCH (10:11)
[2019-02-07] MEDS: IBUPROFEN 400 MG TABLET (FP) PO PRN (10:12)
[2019-02-07] MEDS: BUDESONIDE/FORMETEROL FUMARATE 80/4.5 mcg INHALER IH PRN (10:20)
[2019-02-07] MEDS: MONTELUKAST NA 10 MG TABLET PO SCH (21:28)
[2019-02-07] MEDS: THIAMINE HCL 100 MG TABLET (FP) PO SCH (21:28)
[2019-02-07] MEDS: MELATONIN 5 MG TABLETS PO PRN (21:29)
[2019-02-07] MEDS: SUVOREXANT 10 MG TABLET PO PRN (21:29)
[2019-02-08] MEDS: FUROSEMIDE 20 MG TABLET (FP) PO SCH (09:43)
[2019-02-08] MEDS: BUDESONIDE/FORMETEROL FUMARATE 80/4.5 mcg INHALER IH PRN ×2 (09:43→21:21)
[2019-02-08] MEDS: ALLOPURINOL 300 MG TABLET (FP) PO SCH (09:43)
[2019-02-08] MEDS: PRENATAL VITAMINS W/ FOLIC ACID TABLET (FP) PO SCH (09:43)
[2019-02-08] MEDS: SELENIUM SULFIDE 2.5% LOTION 4 OZ. TP SCH (09:43)
[2019-02-08] MEDS: predniSONE 5 MG TABLET (UD) PO SCH (09:44)
[2019-02-08] MEDS: IBUPROFEN 400 MG TABLET (FP) PO PRN (09:45)
[2019-02-08] MEDS: THIAMINE HCL 100 MG TABLET (FP) PO SCH (21:21)
[2019-02-08] MEDS: MONTELUKAST NA 10 MG TABLET PO SCH (21:21)
[2019-02-08] MEDS: SUVOREXANT 10 MG TABLET PO PRN (21:21)
[2019-02-08] MEDS: MELATONIN 5 MG TABLETS PO PRN (21:22)
[2019-02-09] MEDS: predniSONE 5 MG TABLET (UD) PO SCH (09:59)
[2019-02-09] MEDS: ALLOPURINOL 300 MG TABLET (FP) PO SCH (09:59)
[2019-02-09] MEDS: PRENATAL VITAMINS W/ FOLIC ACID TABLET (FP) PO SCH (10:00)
[2019-02-09] MEDS: BUDESONIDE/FORMETEROL FUMARATE 80/4.5 mcg INHALER IH PRN ×2 (10:00→21:35)
[2019-02-09] MEDS: FUROSEMIDE 20 MG TABLET (FP) PO SCH (10:01)
[2019-02-09] MEDS: IBUPROFEN 400 MG TABLET (FP) PO PRN (10:01)
[2019-02-09] MEDS: SELENIUM SULFIDE 2.5% LOTION 4 OZ. TP SCH (10:01)
--- NOTE | 2019-02-09 12:30 | PN ---
[facility] Progress Note Note: Psychiatric nurse practitioner note: Belsoa 10mg renewed X3. Verbal consent given.
[2019-02-09] MEDS: MELATONIN 5 MG TABLETS PO PRN (21:36)
[2019-02-09] MEDS: MONTELUKAST NA 10 MG TABLET PO SCH (21:36)
[2019-02-09] MEDS: THIAMINE HCL 100 MG TABLET (FP) PO SCH (21:36)
[2019-02-09] MEDS: SUVOREXANT 10 MG TABLET PO PRN (21:38)
[2019-02-10] MEDS: ALBUTEROL SO4 8 GM HFA INHALER IH PRN (03:11)
[2019-02-10] MEDS: COLLOIDAL OATMEAL 1 BAR EACH TP PRN (06:26)
[2019-02-10] MEDS: PRENATAL VITAMINS W/ FOLIC ACID TABLET (FP) PO SCH (10:28)
[2019-02-10] MEDS: BUDESONIDE/FORMETEROL FUMARATE 80/4.5 mcg INHALER IH PRN (10:28)
[2019-02-10] MEDS: FUROSEMIDE 20 MG TABLET (FP) PO SCH (10:28)
[2019-02-10] MEDS: predniSONE 5 MG TABLET (UD) PO SCH (10:33)
[2019-02-10] MEDS: ALLOPURINOL 300 MG TABLET (FP) PO SCH (10:35)
[2019-02-10] MEDS: SELENIUM SULFIDE 2.5% LOTION 4 OZ. TP SCH (10:36)
[2019-02-10 11:58] LABS: ALBUMIN 3.7 g/dl (3.4-5.0); BILIRUBIN,TOTAL 0.3 mg/dL (0.2-1); BLOOD UREA NITROGEN 12.4 mg/dL (7-18); CALCIUM 8.9 mg/dL (8.5-10.1); CREATININE 0.9 mg/dL (0.55-1.3); POTASSIUM 4.2 mmol/L (3.5-5.1); TOT PROT 6.9 g/dl (6.4-8.2)
[2019-02-10] MEDS: MELATONIN 5 MG TABLETS PO PRN (21:28)
[2019-02-10] MEDS: THIAMINE HCL 100 MG TABLET (FP) PO SCH (21:28)
[2019-02-10] MEDS: MONTELUKAST NA 10 MG TABLET PO SCH (21:28)
[2019-02-10] MEDS: SUVOREXANT 10 MG TABLET PO PRN (21:29)
--- NOTE | 2019-02-11 10:01 | DS ---
[facility] Discharge Summary - [facility] Discharge Summary Admission Date: 01/28/19 Discharge Date: 02/12/19 - History Present History: Alcohol dependence Pertinent Past History: Pt is a 43 yo M with PMHx of HTN, Asthma, Sarcoidosis (diagnosed 2001), ETOH use. 2008 for detox and rehab here Recently, Oct 2018, [facility] - detox [facility]hab. Was sober for 3 months Pt says he doesn't do other drugs ETOH Said he drinks a half a gallon vodka Sober longest between 2 years - [id number] Nicotine; Does not smoke due to asthma Pshx: Had Pneumothorax-about 2013, chest tube in [facility] All: Meds: Symbicort, albuterol, norvasc, colchicine last used meds 2 days Social hx: Works 2 jobs without his job being affected. Works for [employer] Currently is homeless and lives with various family members- mother and aunt Recently kicked out by girlfriend for drinking Pt with 20 year old son HIV test-neg [facility] Nov 2018 TB test- neg unsure when last done Denies STDs - Discharge Physical Exam Vital Signs: Vital Signs Temperature 97.3 F L 02/11/19 06:42 Pulse Rate 95 H 02/11/19 09:30 Respiratory Rate 18 02/11/19 09:30 Blood Pressure 124/79 02/11/19 09:30 O2 Sat by Pulse Oximetry (%) Pertinent Admission Physical Exam Findings: General Appearance: Yes: No Apparent Distress HEENTM: supple, EOMI Respiratory: Lungs Clear, Breast: Yes: Breast Exam Deferred Cardiology: S1, S2, Abdominal: +Bowel Sounds, Soft, Musculoskeletal: full range of Motion, steady gait, full weight bearing Neurological: CN 2-12 intact, Motor Strength 5/5 - Treatment Discharge Condition: Discharge condition good (medically stable for discharge. Pt will go to [facility]) Hospital Course: Patient was adherent to his treatment plan and medication regimen. He had 1:1 meetings with his counselor and attended groups. He was admitted to rehab on Prednisone for an exacerbation of his sarcoidosis and his PCP was called for direction on weaning the prednisone,which was done and the patient tolerated well. - Medication Discharge Medications: Ambulatory Orders Amlodipine Besylate [Norvasc] 10 mg PO DAILY 01/10/12 Albuterol Sulfate Inhaler - [Ventolin HFA Inhaler -] 2 5ml IH Q4H PRN #1 inhaler 02/11/19 Allopurinol 300 mg PO DAILY #90 tablet 02/11/19 Budesonide/Formeterol Fumarate [SYMBICORT 80/4.5mcg -] 1 inh PO BID #1 inhaler 02/11/19 Colchicine [Colcrys] 0.6 mg PO DAILY PRN #20 cap 02/11/19 Diltiazem HCl [Diltiazem 24Hr ER (Cd)] 120 mg PO DAILY #90 cap.er.24h 02/11/19 Furosemide [Lasix -] 20 mg PO DAILY #90 tablet 02/11/19 Montelukast Na [Singulair -] 10 mg PO HS #90 tablet 02/11/19 Prednisone 10 mg PO DAILY #7 tablet 02/11/19 - Medication-Assisted Treatment (MAT) Medication-Assisted Treatment (MAT): No - Discharge Instructions Diet, activity, other medical instructions: Diet: as tolerated Activity: as tolerated Other medical instructions: Please follow up with aftercare referral and make an appointment with your PCP within 2 weeks of discharge. - Diagnosis (1) Alcohol dependence with uncomplicated withdrawal Status: Chronic - Follow-up Referral Minutes to complete discharge: 20 - AMA Did Patient Leave Against Medical Advice: No
[2019-02-11] MEDS: FUROSEMIDE 20 MG TABLET (FP) PO SCH (10:37)
[2019-02-11] MEDS: PRENATAL VITAMINS W/ FOLIC ACID TABLET (FP) PO SCH (10:37)
[2019-02-11] MEDS: SELENIUM SULFIDE 2.5% LOTION 4 OZ. TP SCH (10:38)
[2019-02-11] MEDS: ALLOPURINOL 300 MG TABLET (FP) PO SCH (10:38)
[2019-02-11] MEDS: predniSONE 5 MG TABLET (UD) PO SCH (10:38)
[2019-02-11] MEDS: MELATONIN 5 MG TABLETS PO PRN (21:42)
[2019-02-11] MEDS: MONTELUKAST NA 10 MG TABLET PO SCH (21:42)
[2019-02-11] MEDS: THIAMINE HCL 100 MG TABLET (FP) PO SCH (21:42)
[2019-02-11] MEDS: SUVOREXANT 10 MG TABLET PO PRN (21:43)
[2019-02-11] MEDS ORDERED: PT OWN MED DRAWER 7, Y5N ONE (21:44)
[2019-02-12] MEDS ORDERED: PT OWN MED DRAWER 7, Y5N ONE ×2 (05:56→08:32)
[2019-02-12 07:02] VITALS: BP 120/80; PULSE 68; TEMP 97.8
== END 2019-02-12 08:30 | disposition home or self-care (01) | DRG 895 ==
LOC: YASAS 14:35 → Y6N 18:46 → UNDODISIN 02-02 13:30 → Y3W 02-02 13:59
PROVIDERS: ADMIT Allergy & Immunology; ATTEND Neuromusculoskeletal Medicine & OMM
PROC: HZ2ZZZZ Detoxification Services for Substance Abuse Treatment (ICD-10-PCS; 2019-01-28)
PROC: HZ42ZZZ Group Counseling for Substance Abuse Treatment, Cognitive-Behavioral (ICD-10-PCS; principal; 2019-02-02)
DX: F10.20 Alcohol dependence, uncomplicated (principal); G40.509 Epileptic seizures related to external causes, not intractable, without status epilepticus; I10 Essential (primary) hypertension; J45.909 Unspecified asthma, uncomplicated; D86.9 Sarcoidosis, unspecified; E83.51 Hypocalcemia; M10.9 Gout, unspecified; R73.9 Hyperglycemia, unspecified; R94.5 Abnormal results of liver function studies; Z59.0 Homelessness
CPT/HCPCS: 36415; 80053; 82962; 83036; 84450; 84460; 84550; 85027; 86593